=== PATIENT | female | born 1960 | race Two or more races ===

== ENCOUNTER 2025-02-16 06:49 | Emergency (ER) | payer MEDICAID, SELFPAY ==
[2025-02-16 07:13] VITALS: BP 174/110; BP 197/122; PULSE 104; RESP 19; TEMP 37.1; O2SAT 97
--- NOTE | 2025-02-16 07:25 | XR_ITS ---
Examination:Left hip AP, lateral, AP pelvis 3 views Technique: Hip AP lateral, AP pelvis, 3 views Exam date and time:February 16, 2025 0848 hours INDICATIONS: Onset left-sided hip pain today FINDINGS: No left hip fracture or dislocation No arthritic change. Regular bones of the pelvis intact IMPRESSION: No hip or pelvic fracture No significant hip arthritic change.
--- NOTE | 2025-02-16 07:44 | EDNOTE_ITS ---
<Statement entered by Beronica Arevalo MD - 02/17/25 06:32> As co-signing physician, I was present and available for consult prn. I concur with the plan and care as documented by the midlevel provider. ED General RME/HPI General Chief complaint: General Adult/Misc Complain Stated complaint: LEFT SIDE BODY PAIN X 1DAY Time Seen by Provider: 02/16/25 07:15 Source: patient Arrival date/time: 02/16/25 06:49 64-year-old female with no known medical history presents to the emergency room with a chief complaint of left-sided body pain x 1 day Mode of arrival: ambulatory Limitations: no limitations Related Data Previous Rx's ?Medication ?Instructions ?Recorded oseltamivir 75 mg capsule (Tamiflu) 75 mg PO Q12H #10 caps 10/19/19 Allergies Allergy/AdvReac Type Severity Reaction Status Date / Time No Known Allergies Allergy Verified 03/05/20 03:33 Review of Systems Review of Systems Systems Reviewed: All systems reviewed, normal except as documented Constitutional Constitutional: Reports system reviewed and no additional complaints, except as documented, Denies fatigue, Denies fever(s), Denies headache(s) and Denies weakness Eyes Eyes: Reports system reviewed and no additional complaints, except as documented, Denies blurry vision and Denies change in vision ENT Ears, Nose, Mouth, and Throat: Reports system reviewed and no additional complaints, except as documented, Denies otalgia, Denies headache(s), Denies nasal congestion, Denies throat swelling and Denies vertigo Cardiovascular Cardiovascular: Reports system reviewed and no additional complaints, except as documented, Denies chest pain, Denies dyspnea and Denies dyspnea on exertion Respiratory Respiratory: Reports system reviewed and no additional complaints, except as documented, Denies chest congestion, Denies cough, Denies dyspnea, Denies dyspnea on exertion and Denies wheezing Gastrointestinal Gastrointestinal: Reports system reviewed and no additional complaints, except as documented, Denies abdominal pain, Denies cramping, Denies nausea and Denies vomiting Genitourinary Genitourinary: Reports system reviewed and no additional complaints, except as documented Musculoskeletal Musculoskeletal: Reports system reviewed and no additional complaints, except as documented, Reports arthralgias, Denies back pain and Reports limited range of motion Integumentary/Breasts Skin/Breast: Reports system reviewed and no additional complaints, except as documented and Denies wounds Neurologic Neurologic: Reports system reviewed and no additional complaints, except as documented, Denies confusion, Denies headache(s), Denies lack of coordination, Denies vertigo and Denies weakness Psychiatric Psychiatric: Reports system reviewed and no additional complaints, except as documented, Denies anxiety, Denies confusion, Denies depression, Denies paranoia, Denies suicidal ideation and Denies tactile hallucinations Endocrine Endocrine: Reports system reviewed and no additional complaints, except as documented and Denies fatigue Hematologic/Lymphatic Hematologic/Lymphatic: Reports system reviewed and no additional complaints, except as documented and Denies lymphadenopathy Allergic/Immunologic Allergic/Immunologic: Reports system reviewed and no additional complaints, except as documented, Denies throat swelling, Denies urticaria and Denies wheezing Past Medical History Past Medical History CARDIAC: Negative Congestive Heart Failure RESPIRATORY: Negative Chronic Obstructive Pulmonary Disease (COPD) GENITOURINARY: Negative Renal Disease MUSCULOSKELETAL: Positive Musculoskeletal Disorders and Arthritis ENDOCRINE: Negative Diabetes Mellitus Type 1 or Diabetes Mellitus Type 2 Social History SMOKING STATUS: Never smoker SUBSTANCE USE: does not use ED Exam General Limitations: Present no limitations General appearance: Present alert and in no apparent distress Head Head exam: Present atraumatic Eye Eye exam: Present normal appearance, PERRL and EOMI ENT ENT exam: Present normal exam, normal oropharynx and mucous membranes moist Neck Neck exam: Present normal inspection, full ROM and trachea midline Chest Chest inspection: Present normal inspection and symmetric chest wall rise Respiratory Respiratory exam: Present normal lung sounds bilaterally Cardiovascular Cardiovascular exam: Present regular rate, normal rhythm and normal heart sounds Abdominal Exam Abdominal exam: Present soft and normal bowel sounds Extremities Exam Extremities exam: Present normal inspection and full ROM Back Exam Back exam: Present normal inspection and full ROM Neurological Exam Neurological exam: Present alert, oriented X3 and CN II-XII intact Psychiatric Psychiatric exam: Present normal affect and normal mood Skin Skin exam: Present warm, dry, intact and normal color Course Quality Measures none Orders Category Date Time Status EKG (ED ONLY) *Do not use* NOW Care 02/16/25 07:25 Completed EKG (ED Only) Stat Exams 02/16/25 07:25 Ordered XR hip LT w pelvis 2-3V Stat Exams 02/16/25 07:25 Completed A1C [Glycohemoglobin w (eAG)] Stat Lab 02/16/25 07:40 Completed B-Type Natriuretic Peptide Stat Lab 02/16/25 07:40 Completed CBC Stat Lab 02/16/25 07:40 Completed Comprehensive Metabolic Panel Stat Lab 02/16/25 07:40 Completed Troponin I Stat Lab 02/16/25 07:40 Completed Urinalysis Stat Lab 02/16/25 08:20 Completed Ketorolac Inj [Toradol Inj] Med 02/16/25 07:26 Discontinued 30 mg IM X1 ONE cloNIDine HCL [Catapres] Med 02/16/25 07:26 Discontinued 0.1 mg PO X1 ONE Vital Signs Vital signs: Vital Signs Temperature 98.7 F 02/16/25 07:13 Pulse Rate 104 H 02/16/25 07:13 Respiratory Rate 19 02/16/25 07:13 Blood Pressure 174/110 H 02/16/25 07:13 Pulse Oximetry (%) 97 02/16/25 07:13 Oxygen Delivery Method Room Air 02/16/25 07:13 Discharge Plan Plan Patient Disposition: HOME (Self Care) Discharge Disposition comment: Stable Prescriptions/Referrals Prescriptions/Med Rec: No Action oseltamivir [Tamiflu] 75 mg capsule 75 mg PO Q12H Qty: 10 0RF Referrals: Temporary Provider,ED [Physician] - In 1 week Problem List Clinical Impression: Asymptomatic hypertensive urgency, Arthralgia of hip, left Patient/Caregiver Discharge Instructions Education Materials: ED Arthralgia Additional Instructions: Por favor, consulte con suarez m?dico de cabecera en las pr?ximas 24 a 48 horas. Suarez presi?n arterial estaba elevada hero suarez visita. Suarez glucemia tambi?n estaba elevada hero suarez visita. Deber? consultar con suarez m?dico de cabecera para un mejor control de suarez glucemia, presi?n arterial dorota y posible colesterol. Las radiograf?as de suarez cadera izquierda dieron negativo para fracturas o luxaciones agudas. Si observa cualquier signo de empeoramiento de los signos o s?ntomas, acuda a urgencias de inmediato. Print Language: Occitan Stand Alone Forms: Billie Award Info., Work/School Release, Patient Portal Info Letter PA/DRY CELL TESTER Supervising Physician PA/DRY CELL TESTER Supervising Physician: Dr. AREVALO [facility] Narrative [facility] hospital course: 64-year-old female with no known medical history presents to the emergency room with a chief complaint of left-sided body pain x 1 day Patient is hemodynamically stable. Patient initially was very hypertensive at 174/110. Patient states she does not see a primary care provider and has not been to any health clinic in multiple years. Patient states she came to the emergency room today due to left-sided body aching and pain with no trauma. An x-ray of the left hip where her pain was localized did not show any acute fra cture or dislocation. The patient was given medication to help her with her blood pressure as well as a cardiac examination was completed. The cardiac examination was negative EKG was within normal limits and blood pressure dropped down to 164/84. Blood work showed hyperglycemia and an elevated A1c level. Patient was educated to follow-up with her primary care provider for management of her hyperglycemia, hypertension and probable cholesterol. Patient was discharged Patient was discharged and educated to follow-up with primary care provider in the next 24 to 48 hours and return to the emergency room for any evidence of worsening signs or symptoms Clinical Information Provided by patient Medical Records Reviewed [facility] Meds/Rx Considered, not Ordered None Labs/Rad/Tests considered, not Ordered None Chronic Illness/Social Conditions which may negatively complicate care or outcome(s)-explain: None or not applicable Lab Interpretation Labs: interpreted by me and see narrative above Lab(s) interpretation(s): X-ray of the left hip-FINDINGS: No left hip fracture or dislocation No arthritic change. Regular bones of the pelvis intact IMPRESSION: No hip or pelvic fracture No significant hip arthritic change. Imaging Imaging interpretation: see narrative above Medication Administration(s) Medication Administration History Discontinued Medications Clonidine (Clonidine Hcl 0.1 Mg Tablet) 0.1 mg PO X1 ONE Stop: 02/16/25 07:27 Last Admin: 02/16/25 08:00 Dose: 0.1 mg Documented By: OA Ketorolac Tromethamine (Ketorolac Inj 60 Mg/2 Ml Vial) 30 mg IM X1 ONE Stop: 02/16/25 07:27 Last Admin: 02/16/25 08:00 Dose: 30 mg Documented By: OA Medication given Diagnosis Differential diagnosis: Asymptomatic hypertensive urgency/left hip sprain/left hip fracture/symptom Differential dx and/or dx ruled out: Left hip fracture/hypertensive emergency Most likely dx, and/or detailed dx discussion: Asymptomatic hypertensive urgency and on the left hip sprain Dispositon Disposition: Discharge Home
[2025-02-16 07:50] LABS: Basophils # (Auto) 0.1 Thou/mm3 (0.0-0.2); Basophils % (Auto) 1 % (0-2.5); Eosinophils # (Auto) 0.2 Thou/mm3 (0.0-0.5); Eosinophils % (Auto) 2 % (0-10); Hematocrit 40.3 % (36.0-46.0); Hemoglobin 13.5 g/dL (12.0-16.0); Immature Granulocytes % (Auto) 0 % (0-0); Immature Granulocytes Auto 0.03 Thou/mm3 (0.00-0.00); Lymphocytes # (Auto) 2.8 Thou/mm3 (1.0-4.8); Lymphocytes % (Auto) 35 % (10-50); Mean Corpuscular HGB Conc 33.5 g/dl (31.0-37.0); Mean Corpuscular Hemoglobin 30.2 pg (25.0-35.0); Mean Corpuscular Volume 90 fL (80-100); Monocytes # (Auto) 0.5 Thou/mm3 (0.0-0.8); Monocytes % (Auto) 7 % (0-12); Neutrophils # (Auto) 4.4 Thou/mm3 (1.8-7.7); Neutrophils % (Auto) 55 % (37-80); Nucleated Red Blood Cell % 0 /100 WBC (0); Platelet Count 232 Thou/mm3 (140-440); RDW Standard Deviation 42.5 fL (36.4-46.3); Red Blood Count 4.47 Miln/mm3 (4.00-5.20); White Blood Count 8.1 Thou/mm3 (3.6-11.0)
[2025-02-16 08:00] VITALS: BP 174/110; PULSE 104
[2025-02-16] MEDS: KETOROLAC INJ 60 MG/2 ML VIAL 30 MG IM (08:00)
[2025-02-16] MEDS: cloNIDine HCL 0.1 MG TABLET PO (08:00)
[2025-02-16 08:07] LABS: Glucose Estimated Average 203 mg/dL (80-131); Hemoglobin A1C 8.7 % Hgb (4.8-6.0)
[2025-02-16 08:10] LABS: Alanine Aminotransferase 13 U/L (10-49); Albumin, Serum 4.3 gm/dL (3.4-4.8); Albumin/Globulin Ratio 1.4 (1.2-2.2); Alkaline Phosphatase 68 U/L (46-116); Anion Gap 10 (7-16); Aspartate Amino Transferase 19 U/L (0-34); BUN/Creatinine Ratio 19 Ratio (12-20); Bilirubin,Total 1.2 mg/dL (0.3-1.2); Blood Urea Nitrogen 17 mg/dL (9-23); Calcium 8.4 mg/dL (8.3-10.6); Calcium (Corrected) 8.4 mg/dL (8.5-10.1); Carbon Dioxide 27.4 mMol/L (20.0-31.0); Chloride 105 mMol/L (98-107); Creatinine (Component) 0.9 mg/dL (0.6-1.3); Glucose 204 mg/dL (74-106); Osmolality,Calculated 290 (275-295); Potassium 4.1 mMol/L (3.4-5.1); Sodium 142 mMol/L (136-145); Total Protein 7.3 gm/dL (5.7-8.2); Troponin I < 0.020 ng/mL (0.0-0.045); eGFR > 60 See Note
[2025-02-16 08:28] LABS: Collection Type, Urine Clean Catch
[2025-02-16 08:38] LABS: Bacteria,Urine Rare; Bilirubin,Urine Negative (Negative); Blood,Urine 2+ (Negative); Color,Urine Yellow (Lt Yel-Yel); Glucose, Urine Trace (Negative); Hyaline Casts,Urine < 1 /hpf (0-1); Ketones,Urine Negative (Negative); Leukocyte Esterase,Urine Positive (Negative); Nitrite,Urine Negative (Negative); Protein,Urine 2+ (Neg - Trace); RBC,Urine 25 /hpf (0-3); Specific Gravity,Urine 1.033 (1.001-1.035); Squamous Epithelial Cell,Urine 12 /hpf (0-5); WBC,Urine 73 /hpf (0-5)
[2025-02-16 08:39] LABS: B-Type Natriuretic Peptide 71 pg/mL (0-100)
[2025-02-16 08:46] LABS: Clarity,Urine Hazy (Clear/Hazy)
[2025-02-16 08:52] VITALS: BP 164/84; PULSE 74; RESP 17; TEMP 36.9; O2SAT 98
[2025-02-16 09:35] VITALS: BP 145/78; PULSE 71
== END 2025-02-16 09:36 | disposition home or self-care (01) ==
PROVIDERS: Nurse Practitioner Family; Emergency Provider Emergency Medicine
DX: M25.552 Pain in left hip (principal); I16.0 Hypertensive urgency
CPT/HCPCS: 36415; 73502; 80053; 81001; 83036; 83880; 84484; 85025; 93005; 96372; 99283; J1885; A9270

== ENCOUNTER 2025-08-31 14:54 | Emergency (ER) | payer MEDICARE, MEDICAID, SELFPAY ==
[2025-08-31 15:21] VITALS: BP 162/90; PULSE 99; RESP 18; TEMP 36.9; O2SAT 96
--- NOTE | 2025-08-31 15:33 | EDNOTE_ITS ---
ED Female Urogenital RME/HPI General Chief complaint: Urogenital-Female Stated complaint: DYSURIA Time Seen by Provider: 08/31/25 15:12 Arrival date/time: 08/31/25 14:54 RME / HPI Impression: 64-year-old female with a past medical history of hypertension and diabetes, complaining of itchy rash to her groin x 4 days. Denies any abdominal pain, flank pain, fever, nausea, vomiting. Related Data Previous Rx's ?Medication ?Instructions ?Recorded oseltamivir 75 mg capsule (Tamiflu) 75 mg PO Q12H #10 caps 10/19/19 clotrimazole 1 % topical cream 1 applic topical BID 1 month #90 08/31/25 (Antifungal (clotrimazole)) grams fluconazole 150 mg tablet 150 mg PO QMONTH #1 tab 08/21 10/15 Allergies Allergy/AdvReac Type Severity Reaction Status Date / Time No Known Allergies Allergy Verified 03/05/20 03:33 ED Exam Narrative Physical exam: Constitutional: Vital Signs Reviewed. Well appearing. No acute distress. Not toxic appearing. Head: Normocephalic, atraumatic. Eyes: Conjunctiva clear. ENT: Mucous membranes moist. Neck: Trachea midline. Normal range of motion. No nuchal rigidity. Respiratory: Normal effort. No respiratory distress or accessory muscle use. Neuro: Alert and oriented. Speech normal. No focal gross motor or sensory deficits observed. Abdomen: Soft. Nondistended. No rebound or guarding. Nontender to palpation throughout. Skin: Warm, dry, normal color. Scaly erythematous rash noted to groin. : No abnormal vaginal discharge. Celery Cutter was theresa WOODARD. This was just an outer genitalia exam Psych: Pleasant. Normal affect. Cooperative. Course Course Course Narrative: ED glucose 111 per technical marketing engineer Quality Measures none Orders Category Date Time Status Glucose [Bedside Blood Glucose] NOW Care 08/31/25 15:33 Active Urinalysis Stat Lab 08/31/25 17:13 Received Urine Culture Stat Lab 08/31/25 17:13 Received Fluconazole [Diflucan] Med 08/31/25 16:09 Discontinued 150 mg PO X1 ONE Reevaluation(s) Reevaluation #1: At the time of reassessment prior to discharge, the patient remains alert and oriented ?3 with GCS 15. Vitals are normal, pain is controlled, and the patient is tolerating oral intake without nausea or vomiting. The patient is agreeable to discharge and verbalizes understanding of the diagnosis, studies, treatment plan, medications (including side effects/precautions), and strict ER return precautions as discussed in the ED. All concerns were addressed, and the patient is comfortable with the plan. Vital Signs Vital signs: Vital Signs Temperature 98.5 F 08/31/25 15:21 Pulse Rate 99 08/31/25 15:21 Respiratory Rate 18 08/31/25 15:21 Blood Pressure 162/90 H 08/31/25 15:21 Pulse Oximetry (%) 96 08/31/25 15:21 Oxygen Delivery Method Room Air 08/31/25 15:21 Urogenital - Female MDM Narrative MDM Narrative:: MDM Suspect: Rash is likely 2/2 tinea cruris No mucocutaneous lesions/vesicular lesions to suggest TENS/SJS No induration, fluctuance, severe warmth, fever, streaking to suggest suppurative bacterial infection No petechial or raised purpura to suggest vasculitis, hemolytic, thrombocytopenic rash No systemic signs ie respiratory distress etc. to suggest anaphylaxis No fever, extremity desquamation, mucocutaneous changes, conjunctivitis, adenopathy to suggest Kawasaki disease UA offered however patient declined which is reasonable as she was not comp laining of dysuria I plan on giving her a Diflucan pill here in the ER prior to her discharge to cover for potential early mild vaginitis as well but most of her symptoms were outside of her vagina and not inside Plan for clotrimazol, supportive tx, f/u with pmd and derm in 1-2 days Patient data External records reviewed:: [facility] previous records Clinical information provided by:: patient Social determinants that could affect healthcare access:: none Patient has the following chronic illnesses:: Diabetes How is presenting disease/condition affected by chronic disease/condition?: exacerbated by Evaluation data The following diagnostics were reviewed and interpreted by me:: other (specify) Lab and/or radiology exams considered but not ordered:: Additional Labs and radiology considered, but not ordered as they were not clinically indicated at this time. Interpretation Summary: As noted Medications / Prescriptions Medications or Prescriptions considered but not ordered:: I ordered medications based on the patient?s clinical needs and assessment, as documented in the chart. For medications not prescribed, they were not indicated for the patient's current condition, and I determined they were unnecessary at this time to avoid potential risks or complications. Medication administrations:: Medication Administration History Discontinued Medications Fluconazole (Fluconazole 150 Mg Tablet) 150 mg PO X1 ONE Stop: 08/31/25 16:10 As noted Consultations Consultation(s) initiated? (list below): No Diagnosis Urogenital Female Differential Diagnosis: urinary tract infection Most likely diagnosis given after review of the tests above:: Rash Admission Indicated Admission indicated?: not indicated Admission Request Was there a request for admission?: No Disposition Plan Disposition Plan: Discharge Discharge Attestation Discharge Attestation: The patient and all family members were given an opportunity to ask questions and understood the discharge instructions. Discharge instructions specifically effects, indications for sooner follow up or return to the emergency department, and the expected course of current diagnosis. Patient condition: Stable Discharge Plan Plan Patient Disposition: Home w/HOME HEALTH Patient condition on transfer: Stable Prescriptions/Referrals Prescriptions/Med Rec: New clotrimazole [Antifungal (clotrimazole)] 1 % cream 1 applic topical BID 30 Days Qty: 90 0RF fluconazole 150 mg tablet 150 mg PO QMONTH Qty: 1 0RF No Action oseltamivir [Tamiflu] 75 mg capsule 75 mg PO Q12H Qty: 10 0RF Problem List Clinical Impression: Vaginitis, Tinea cruris Patient/Caregiver Discharge Instructions Education Materials: ED Tinea Cruris, Jock Itch Additional Instructions: Follow up with your primary medical doctor within 48 hours. Return to the Emergency Room immediately for any new, worsening, continuing symptoms or any concerns at all. Return to the Emergency Room within 48 hours if you are unable to follow up with your primary medical doctor within 48 hours. Please wear cotton underwear and breathable close. Keep your groin cool and dry. Print Language: Zambian Stand Alone Forms: Billie Award Info., Patient Portal Info Letter PA/VACUUM FURNACE OPERATOR Supervising Physician PA/VACUUM FURNACE OPERATOR Supervising Physician: Dr. Askew
--- NOTE | 2025-08-31 16:36 | PC.NURSE ---
PT CALLED INSIDE AND OUTSIDE ED LOBBY; NO RESPONSE AT THIS TIME
[2025-08-31 17:18] LABS: Collection Type, Urine Voided
[2025-08-31 17:23] LABS: Bilirubin,Urine Negative (Negative); Blood,Urine 2+ (Negative); Clarity,Urine Clear (Clear/Hazy); Color,Urine Lt-Yellow (Lt Yel-Yel); Glucose, Urine Negative (Negative); Hyaline Casts,Urine < 1 /hpf (0-1); Ketones,Urine Negative (Negative); Leukocyte Esterase,Urine Negative (Negative); Nitrite,Urine Negative (Negative); PH,Urine 5.5 (5.0-7.0); Protein,Urine 1+ (Neg - Trace); RBC,Urine 6 /hpf (0-3); Specific Gravity,Urine 1.021 (1.001-1.035); Squamous Epithelial Cell,Urine 1 /hpf (0-5); Urobilinogen,Urine Negative mg/dL (0.0-1.0); WBC,Urine 2 /hpf (0-5)
--- NOTE | 2025-08-31 17:28 | PC.NURSE ---
PT CALLED BACK FOR D/C X3. NOT FOUND IN OR OUTSIDE OF ED. PT ELOPED.
== END 2025-08-31 17:29 | disposition left against medical advice (07) ==
PROVIDERS: Physician Assistant; Emergency Provider Surgery
DX: N76.0 Acute vaginitis (principal); B35.6 Tinea cruris; Z53.29 Procedure and treatment not carried out because of patient's decision for other reasons
CPT/HCPCS: 81001; 87086; 99282

== ENCOUNTER 2025-09-04 03:01 | Emergency (ER) | payer MEDICARE, MEDICAID, SELFPAY ==
--- NOTE | 2025-09-04 03:07 | PD.EDSKIN ---
ED Skin Abcess FB-RME/HPI General Chief complaint: General Adult/Misc Complain Stated complaint: ITCHING ON PRIVATE AREA Time Seen by Provider: 09/04/25 03:06 Arrival date/time: 09/04/25 03:01 This is a case of 64-year-old female with no medical history came in in the emergency room with multiple symptoms patient states that she has some lump on the chin possible abscess now with itching and pain thus decided to sought consult here in the emergency patient also having itching on the private area but no penile discharge no testicular pain no other symptoms notes patient verbalized to be tested only for his STD Limitations: no limitations Related Data Previous Rx's ?Medication ?Instructions ?Recorded oseltamivir 75 mg capsule (Tamiflu) 75 mg PO Q12H #10 caps 10/19/19 clotrimazole 1 % topical cream 1 applic topical BID 1 month #90 08/31/25 (Antifungal (clotrimazole)) grams fluconazole 150 mg tablet 150 mg PO QMONTH #1 tab 08/31/25 Allergies Allergy/AdvReac Type Severity Reaction Status Date / Time No Known Allergies Allergy Verified 03/05/20 03:33 Review of Systems Review of Systems Systems Reviewed: All systems reviewed, normal except as documented Constitutional Constitutional: Reports system reviewed and no additional complaints, except as documented and Reports as per HPI ENT Ears, Nose, Mouth, and Throat: Reports system reviewed and no additional complaints, except as documented and Reports as per HPI Cardiovascular Cardiovascular: Reports system reviewed and no additional complaints, except as documented and Reports as per HPI Respiratory Respiratory: Reports system reviewed and no additional complaints, except as documented and Reports as per HPI Gastrointestinal Gastrointestinal: Reports system reviewed and no additional complaints, except as documented and Reports as per HPI Integumentary/Breasts Skin/Breast: Reports system reviewed and no additional complaints, except as documented and Reports as per HPI Neurologic Neurologic: Reports system reviewed and no additional complaints, except as documented and Reports as per HPI Past Medical History Past Medical History CARDIAC: Negative Congestive Heart Failure RESPIRATORY: Negative Chronic Obstructive Pulmonary Disease (COPD) GENITOURINARY: Negative Renal Disease MUSCULOSKELETAL: Positive Musculoskeletal Disorders and Arthritis ENDOCRINE: Negative Diabetes Mellitus Type 1 or Diabetes Mellitus Type 2 Social History SMOKING STATUS: Never smoker SUBSTANCE USE: does not use ED Exam General Limitations: Present no limitations General appearance: Present alert, in no apparent distress and other (Patient is awake alert oriented not in distress nontoxic looking well-hydrated well-nourished) Head Head exam: Present atraumatic, normocephalic and normal inspection Eye Eye exam: Present normal appearance, PERRL and EOMI ENT ENT exam: Present normal exam, normal oropharynx and mucous membranes moist Neck Neck exam: Present normal inspection, full ROM and trachea midline; Absent tenderness, meningismus, lymphadenopathy or thyromegaly Chest Chest inspection: Present normal inspection and symmetric chest wall rise; Absent tenderness Respiratory Respiratory exam: Present normal lung sounds bilaterally; Absent respiratory distress, wheezes, stridor, accessory muscle use or prolonged expiratory phase Cardiovascular Cardiovascular exam: Present regular rate, normal rhythm and normal heart sounds; Absent bradycardia, tachycardia, irregular rhythm, systolic murmur or diastolic murmur Abdominal Exam Abdominal exam: Present soft and normal bowel sounds; Absent distention, tenderness, guarding, rebound, rigidity, diminished bowel sounds, hyperactive bowel sounds, hypoactive bowel sounds, organomegaly or trauma External exam: Present other (Refused by the patient not comfortable) Extremities Exam Extremities exam: Present normal inspection and full ROM Back Exam Back exam: Present normal inspection and full ROM Neurological Exam Neurological exam: Present alert, oriented X3, CN II-XII intact, normal gait and reflexes normal; Absent motor sensory deficit Psychiatric Psychiatric exam: Present normal affect and normal mood Skin Skin exam: Present warm, dry, intact, normal color and other (Noted 1 cm lump on the chin tender to touch hard to touch mild redness and swelling no discharge no fluctuance not indurated suggestive of abscess but no surrounding cellulitis) Course Quality Measures none Orders Category Date Time Status Chlamydia/GC/TV - PCR Stat Lab 09/04/25 Ordered HYDROcodone*/APAP 5/325 [[place] 5/325] Med 09/04/25 03:06 Discontinued 1 tab PO X1 ONE Vital Signs Vital signs: Vital Signs Temperature 97.0 F 09/04/25 03:12 Pulse Rate 73 09/04/25 03:12 Respiratory Rate 18 09/04/25 03:12 Blood Pressure 149/71 H 09/04/25 03:12 Pulse Oximetry (%) 97 09/04/25 03:12 Oxygen Delivery Method Room Air 09/04/25 03:12 Oxygen saturation normal Skin / Abscess / Foreign Body MDM Narrative MDM Narrative:: This is a case of 64-year-old female with no medical history came in in the emergency room with multiple symptoms patient states that she has some lump on the chin possible abscess now with itching and pain thus decided to sought consult here in the emergency patient also having itching on the private area but no penile discharge no testicular pain no other symptoms notes patient verbalized to be tested only for his STD physical examination patient is awake alert oriented not in distress nontoxic looking well-hydrated well-nourished noted a small 1 cm lump on the chin suggestive of abscess but no cellulitis no discharge tender and hard to touch at the time of an exam there is no indication to perform incision and drainage patient will be discharged with Bactrim for the abscess patient refused to be at examining on the private area patient states that he wants only to be tested for STD denies STD screening was performed and he will be informed for the result of the test he was advised to call the medical record for the result of the STD and if is positive return immediately in the ER or go to the primary care physician to have antibiotic treatment for any worsening symptoms or any emergent concern return precaution in the ER is advised Patient was discharged with comfortable condition walking with stable gait. Patient verbalized no further complains explained diagnosis and answered patient question. Patient is comfortable with the proposed management plan including the need to follow up with his/her primary care physician and any specialist if applicable Discussed patient for any urgent condition or worsening sx, He/She needed to go to emergency room immediately or call 911. Patient acknowledge the responsibility to follow up as instructed and to monitor her/his symptoms. For any persistence of the symptoms for more than 3-5 days return precaution advised. Discussed the result of the test and was given printed discharge instruction Patient data External records reviewed:: [facility] previous records Clinical information provided by:: patient and parent Social determinants that could affect healthcare access:: none (None) Patient has the following chronic illnesses:: None How is presenting disease/condition affected by chronic disease/condition?: no chronic disease Evaluation data The following diagnostics were reviewed and interpreted by me:: other (specify) (None) Lab and/or radiology exams considered but not ordered:: None Interpretation Summary: None Medications / Prescriptions Medications or Prescriptions considered but not ordered:: Given Medication administrations:: Medication Administration History Discontinued Medications Hydrocodone Bitart/Acetaminophen (Hydrocodone/[place]ap 5/325 Tablet) 1 tab PO X1 ONE Stop: 09/04/25 03:07 Given Consultations Consultation(s) initiated? (list below): No Diagnosis Skin/Abscess Differential Diagnosis: abscess of skin or subcutaneous tissue, urticaria, cellulitis and contact dermatitis Most likely diagnosis given after review of the tests above:: Skin abscess chin screening for STD Admission Indicated Admission indicated?: not indicated Explain why admission is indicated or not indicated:: Not indicated Admission Request Was there a request for admission?: No Disposition Plan Disposition Plan: Discharge Discharge Attestation Discharge Attestation: The patient and all family members were given an opportunity to ask questions and understood the discharge instructions. Discharge instructions specifically effects, indications for sooner follow up or return to the emergency department, and the expected course of current diagnosis. Patient condition: Stable Discharge Plan Plan Patient Disposition: HOME (Self Care) Patient condition on transfer: Stable Prescriptions/Referrals Prescriptions/Med Rec: No Action oseltamivir [Tamiflu] 75 mg capsule 75 mg PO Q12H Qty: 10 0RF clotrimazole [Antifungal (clotrimazole)] 1 % cream 1 applic topical BID 30 Days Qty: 90 0RF fluconazole 150 mg tablet 150 mg PO QMONTH Qty: 1 0RF Problem List Clinical Impression: Cutaneous abscess, Screen for STD (sexually transmitted disease) Patient/Caregiver Discharge Instructions Education Materials: ED Abscess Antibiotic ..., ED Testing for Suspected STI Additional Instructions: It is very important to return in the emergency room in 2 days for reevaluation of wound abscess and possible incision and drainage follow-up with your primary care physician in 2 days for reevaluation and for any worsening symptoms or any emergent concern call 911 or go to the nearest emergency room take your medication as directed finish the course of antibiotic keep hydrated keep the area clean and dry call medical record for the result of your STD and if positive return to the emergency room or go to your primary care physician for antibiotic treatment Print Language: Malawian Stand Alone Forms: Billie Award Info., Patient Portal Info Letter PA/CARPENTER MATE Supervising Physician BLANCA/ARIES Supervising Physician: Dr. Anderson
[2025-09-04 03:12] VITALS: BP 149/71; PULSE 73; RESP 18; TEMP 36.1; O2SAT 97
[2025-09-04 03:53] LABS: Collection Type, Urine Voided
[2025-09-04 04:09] LABS: Bilirubin,Urine Negative (Negative); Blood,Urine 1+ (Negative); Clarity,Urine Clear (Clear/Hazy); Color,Urine Lt-Yellow (Lt Yel-Yel); Glucose, Urine Negative (Negative); Hyaline Casts,Urine < 1 /hpf (0-1); Ketones,Urine Negative (Negative); Leukocyte Esterase,Urine Negative (Negative); Nitrite,Urine Negative (Negative); PH,Urine 6.0 (5.0-7.0); Protein,Urine Negative (Neg - Trace); RBC,Urine 2 /hpf (0-3); Specific Gravity,Urine 1.018 (1.001-1.035); Squamous Epithelial Cell,Urine 1 /hpf (0-5); Urobilinogen,Urine Negative mg/dL (0.0-1.0); WBC,Urine 1 /hpf (0-5)
--- NOTE | 2025-09-04 04:15 | EDNOTE_ITS ---
ED Female Urogenital RME/HPI General Chief complaint: General Adult/Misc Complain Stated complaint: ITCHING ON PRIVATE AREA Time Seen by Provider: 09/04/25 03:06 Arrival date/time: 09/04/25 03:01 This is a case of 64-year-old female with no medical history came in in the emergency room due to vaginal itching and irritation for 2 days patient denies any urinary symptoms denies any abdominal pain denies any vaginal bleeding or vaginal spotting persistence of the symptoms that is patient decided to sought consult here in the emergency room Limitations: no limitations Related Data Previous Rx's ?Medication ?Instructions ?Recorded oseltamivir 75 mg capsule (Tamiflu) 75 mg PO Q12H #10 caps 10/19/19 clotrimazole 1 % topical cream 1 applic topical BID 1 month #90 08/31/25 (Antifungal (clotrimazole)) grams fluconazole 150 mg tablet 150 mg PO QMONTH #1 tab 08/21 10/15 fluconazole 200 mg tablet 200 mg PO QDAY 1 day #1 tab 09/04/25 metronidazole 500 mg tablet 500 mg PO BID #20 tabs triamcinolone acetonide 0.025 % 1 applic topical BID 2 weeks #30 09/04/25 topical cream grams Allergies Allergy/AdvReac Type Severity Reaction Status Date / Time No Known Allergies Allergy Verified 03/05/20 03:33 Review of Systems Review of Systems Systems Reviewed: All systems reviewed, normal except as documented Constitutional Constitutional: Reports system reviewed and no additional complaints, except as documented and Reports as per HPI Cardiovascular Cardiovascular: Reports system reviewed and no additional complaints, except as documented and Reports as per HPI Respiratory Respiratory: Reports system reviewed and no additional complaints, except as documented and Reports as per HPI Gastrointestinal Gastrointestinal: Reports system reviewed and no additional complaints, except as documented and Reports as per HPI Musculoskeletal Musculoskeletal: Reports system reviewed and no additional complaints, except as documented and Reports as per HPI Neurologic Neurologic: Reports system reviewed and no additional complaints, except as documented and Reports as per HPI Past Medical History Past Medical History CARDIAC: Negative Congestive Heart Failure RESPIRATORY: Negative Chronic Obstructive Pulmonary Disease (COPD) GENITOURINARY: Negative Renal Disease MUSCULOSKELETAL: Positive Musculoskeletal Disorders and Arthritis ENDOCRINE: Negative Diabetes Mellitus Type 1 or Diabetes Mellitus Type 2 Social History SMOKING STATUS: Never smoker SUBSTANCE USE: does not use ED Exam General Limitations: Present no limitations General appearance: Present alert, in no apparent distress and other (Patient is awake alert oriented not in distress nontoxic looking well-hydrated well- nourished) Head Head exam: Present atraumatic, normocephalic and normal inspection Eye Eye exam: Present normal appearance, PERRL and EOMI ENT ENT exam: Present normal exam, normal oropharynx and mucous membranes moist Neck Neck exam: Present normal inspection, full ROM and trachea midline; Absent tenderness, meningismus, lymphadenopathy or thyromegaly Chest Chest inspection: Present normal inspection and symmetric chest wall rise; Absent tenderness Respiratory Respiratory exam: Present normal lung sounds bilaterally; Absent respiratory distress, wheezes, stridor, accessory muscle use or prolonged expiratory phase Cardiovascular Cardiovascular exam: Present regular rate, normal rhythm and normal heart sounds; Absent bradycardia, tachycardia, systolic murmur or diastolic murmur Abdominal Exam Abdominal exam: Present soft and normal bowel sounds; Absent distention, tenderness, guarding, rebound, rigidity, diminished bowel sounds, hyperactive bowel sounds, hypoactive bowel sounds, organomegaly, psoas sign, obturator sign, heel tap sign, Knott's sign, Rovsing's sign, tenderness at McBurney's Point or hernia External exam: Present erythema; Absent tenderness, swelling, lesions, lacerations or ecchymosis Speculum exam: Present normal speculum exam and vaginal discharge (Noted whitish discharge); Absent vaginal bleeding, foreign body, tissue or laceration Bimanual exam: Absent cervical motion tenderness, adnexal tenderness, right adnexal tenderness, left adnexal tenderness, adnexal mass, right adnexal mass, left adnexal mass, uterine enlargement or uterine tenderness Extremities Exam Extremities exam: Present normal inspection and full ROM Back Exam Back exam: Present normal inspection and full ROM Neurological Exam Neurological exam: Present alert, oriented X3, CN II-XII intact, normal gait and reflexes normal; Absent motor sensory deficit Psychiatric Psychiatric exam: Present normal affect and normal mood Skin Skin exam: Present warm, dry, intact and normal color Course Quality Measures none Orders Category Date Time Status Chlamydia/GC/TV - PCR Stat Lab 09/04/25 03:47 Received Urinalysis Stat Lab 09/04/25 03:47 Completed HYDROcodone*/APAP 5/325 [[place] 5/325] Med 09/04/25 03:06 Discontinued 1 tab PO X1 ONE Vital Signs Vital signs: Vital Signs Temperature 97.0 F 09/04/25 03:12 Pulse Rate 73 09/04/25 03:12 Respiratory Rate 18 09/04/25 03:12 Blood Pressure 149/71 H 09/04/25 03:12 Pulse Oximetry (%) 97 09/04/25 03:12 Oxygen Delivery Method Room Air 09/04/25 03:12 Oxygen saturation 97% in room air Urogenital - Female MDM Narrative MDM Narrative:: This is a case of 64-year-old female with no medical history came in in the emergency room due to vaginal itching and irritation for 2 days patient denies any urinary symptoms denies any abdominal pain denies any vaginal bleeding or vaginal spotting persistence of the symptoms that is patient decided to sought consult here in the emergency room physical examination patient is awake alert oriented not in distress nontoxic looking well-hydrated well-nourished abdominal exam is benign nonsurgical no guarding no rebound no rigidity no tenderness patient noted to have erythematous redness on the vagina or labia majora with whitish discharge no CMT tenderness the rest of the physical examination were normal based on my physical examination and history patient was treated of vaginitis possible atrophic vaginitis test discharge with fluconazole for possible yeast infection and the metronidazole for possible bacterial vaginosis patient STD exam is still pending they verbalized told to call medical record for the result of the STD patient was also prescribed with triamcinolone cream from the redness rash on the vaginal area patient will follow-up with PCP in 2 days for reevaluation and for any worsening symptoms or any emergent concern return precaution in the ER is advised Patient was discharged with comfortable condition walking with stable gait. Patient verbalized no further complains explained diagnosis and answered patient question. Patient is comfortable with the proposed management plan including the need to follow up with his/her primary care physician and any specialist if applicable Discussed patient for any urgent condition or worsening sx, He/She needed to go to emergency room immediately or call 911. Patient acknowledge the responsibility to follow up as instructed and to monitor her/his symptoms. For any persistence of the symptoms for more than 3-5 days return precaution advised. Discussed the result of the test and was given printed discharge instruction Patient data External records reviewed:: [facility] previous records Clinical information provided by:: patient Social determinants that could affect healthcare access:: none Patient has the following chronic illnesses:: None How is presenting disease/condition affected by chronic disease/condition?: no chronic disease Evaluation data The following diagnostics were reviewed and interpreted by me:: lab results Lab and/or radiology exams considered but not ordered:: Reviewed Interpretation Summary: Reviewed Medications / Prescriptions Medications or Prescriptions considered but not ordered:: Given Medication administrations:: Medication Administration History Discontinued Medications Hydrocodone Bitart/Acetaminophen (Hydrocodone/Apap 5/325 Tablet) 1 tab PO X1 ONE Stop: 09/04/25 03:07 Last Admin: 09/04/25 03:21 Dose: Not Given Documented By: [facility] Non-Admin Reason: Cancelled by Provider Given Consultations Consultation(s) initiated? (list below): No Diagnosis Urogenital Female Differential Diagnosis: urinary tract infection, bacterial vaginosis, trichomoniasis, vaginitis and cystitis Most likely diagnosis given after review of the tests above:: Vaginitis Admission Indicated Admission indicated?: not indicated Explain why admission is indicated or not indicated:: Not indicated Admission Request Was there a request for admission?: No Admission Attestation Admission request attestation: Not indicated Disposition Plan Disposition Plan: Discharge Discharge Attestation Discharge Attestation: The patient and all family members were given an opportunity to ask questions and understood the discharge instructions. Discharge instructions specifically effects, indications for sooner follow up or return to the emergency department, and the expected course of current diagnosis. Patient condition: Stable Discharge Plan Plan Patient Disposition: HOME (Self Care) Patient condition on transfer: Stable Prescriptions/Referrals Prescriptions/Med Rec: New fluconazole 200 mg tablet 200 mg PO QDAY 1 Days Qty: 1 0RF metronidazole 500 mg tablet 500 mg PO BID Qty: 20 0RF triamcinolone acetonide 0.025 % cream 1 applic topical BID 14 Days Qty: 30 0RF No Action oseltamivir [Tamiflu] 75 mg capsule 75 mg PO Q12H Qty: 10 0RF clotrimazole [Antifungal (clotrimazole)] 1 % cream 1 applic topical BID 30 Days Qty: 90 0RF fluconazole 150 mg tablet 150 mg PO QMONTH Qty: 1 0RF Problem List Clinical Impression: Screen for STD (sexually transmitted disease), Acute vaginitis Patient/Caregiver Discharge Instructions Education Materials: Preventing Vaginitis, ED Testing for Suspected STI Additional Instructions: Follow-up with your primary care physician in 2 days for reevaluation worsening symptoms or any emergent concern call 911 or go to the nearest emergency room take your medication as directed finish the course of antibiotic call medical records for the result of your test and if positive return to the emergency room or go to your primary care physician for antibiotic treatment safe sex is a dvised Print Language: Urdu Stand Alone Forms: Billie Award Info., Patient Portal Info Letter PA/AUTOMATION ENGINEERING MANAGER Supervising Physician PA/AUTOMATION ENGINEERING MANAGER Supervising Physician: Dr. Anderson
[2025-09-04 04:20] VITALS: RESP 18
[2025-09-04 10:21] LABS: Chlamydia trachomatis PCR Negative (Not Detect); Neisseria Gonorrhoeae DNA PCR Negative (Not Detect); Trichomonas Negative (Negative)
== END 2025-09-04 04:32 | disposition home or self-care (01) ==
PROVIDERS: Nurse Practitioner Family; Emergency Provider Emergency Medicine; PCP Internal Medicine
DX: Z11.3 Encounter for screening for infections with a predominantly sexual mode of transmission (principal); N76.0 Acute vaginitis
CPT/HCPCS: 81001; 87491; 87591; 87661; 99282